=== PATIENT | female | born 1950 | race Native Hawaiian/Other Pacific Islander ===

== ENCOUNTER 2019-07-15 19:45 | Emergency (ER) | payer OTHER ==
[~2019-07-15] VITALS: Ht 157.5 cm; Wt 42.7 kg
[2019-07-15 20:23] LABS: PLATELET COUNT 296 K/uL (152-353)
[2019-07-15 20:32] LABS: POTASSIUM 4.4 mmol/L (3.6-5.2)
[2019-07-15 20:54] VITALS: BP 145/88; TEMP 98.2
[2019-07-15] MEDS ORDERED: DIVA250T PO (23:35)
[2019-07-15] MEDS ORDERED: DIAZ2TAB PO (23:49)
[2019-07-15] MEDS ORDERED: TRAMADOL (23:51)
[2019-07-15] MEDS ORDERED: CLON0.1T16 PO (23:53)
[2019-07-15] MEDS ORDERED: GABA300C2 PO (23:56)
[2019-07-16] MEDS ORDERED: QUETIAPINE PO (00:03)
[2019-07-16] MEDS ORDERED: MELATONIN10 MG PO (00:04)
[2019-07-16] MEDS ORDERED: REMERON30 MG PO (00:05)
[2019-07-16] MEDS ORDERED: DICL75TA4 PO (00:08)
[2019-07-16] MEDS ORDERED: GAS-X (00:11)
[2019-07-16] MEDS ORDERED: LEVO0.117 PO (00:14)
[2019-07-16] MEDS ORDERED: LISI5TAB10 PO (00:15)
[2019-07-16] MEDS ORDERED: PANTPAK PO (00:17)
[2019-07-16] MEDS ORDERED: PROBIOTIC1 TAB PO (00:19)
[2019-07-16] MEDS ORDERED: [UNRECOGNIZED DRUG - OTHER] (00:22)
[2019-07-16] MEDS ORDERED: DULOXETINE PO (00:26)
[2019-07-16] MEDS ORDERED: FERROUS SULF325 M1 PO (00:27)
[2019-07-16] MEDS ORDERED: IBU600 MG PO (00:30)
[2019-07-16] MEDS ORDERED: [UNRECOGNIZED DRUG - OTHER] PO (00:37)
[2019-07-16] MEDS ORDERED: NASAL SPRAY EX0.05 % NAS (00:40)
[2019-07-16] MEDS ORDERED: ONDANSETRON4 M2 PO (00:41)
[2019-07-16] MEDS ORDERED: ANTI-DIARRHE2 MG PO (00:43)
== END 2019-07-15 21:19 | disposition other institution (70) ==
LOC: ED 19:56
DX: R45.851 Suicidal ideations (principal); N39.0 Urinary tract infection, site not specified; Z03.818 Encounter for observation for suspected exposure to other biological agents ruled out; Z04.6 Encounter for general psychiatric examination, requested by authority
CPT/HCPCS: 80053; 81000; 85027; 87077; 87086; 87088; 87186; 87635; 93005; 99283; U0002